=== PATIENT | female | born 1995 | race African-American/Black ===

== ENCOUNTER 2018-02-24 11:09 | Emergency (ER) | payer OTHER | END 2018-02-24 11:49 | disposition home or self-care (01) | LOC: M ED 11:09 | DX: H10.13 Acute atopic conjunctivitis, bilateral (principal) | CPT/HCPCS: 99283 ==

== ENCOUNTER → 2018-05-11 | Outpatient (REF) | payer OTHER ==
[~2018-05-11] MED LIST: ERYT5OPO OS; OLOP1OPD OS
== END ==
LOC: M SFHCLERA 10:18
PROVIDERS: ATTEND Nurse Practitioner Family
DX: R53.81 Other malaise (principal)

== ENCOUNTER 2018-07-10 01:47 | Emergency (ER) | payer OTHER ==
[~2018-07-10] VITALS: Ht 165.1 cm; Wt 86.4 kg
[2018-07-10 01:47] VITALS: BP 142/71
[~2018-07-10 01:47] MED LIST changes: +ERYT1OIN26 OS; -ERYT5OPO OS; -OLOP1OPD OS; +PATA2.5S OS
== END 2018-07-10 04:04 | disposition left against medical advice (07) ==
LOC: M ED 01:47
DX: J02.9 Acute pharyngitis, unspecified (principal); Z53.21 Procedure and treatment not carried out due to patient leaving prior to being seen by health care provider

== ENCOUNTER 2019-04-11 12:09 | Emergency (ER) | payer OTHER ==
[~2019-04-11] VITALS: Ht 165.1 cm; Wt 91.4 kg
[2019-04-11] MEDS ORDERED: cefTRIAXone SOD 1 GM in D5W MINI-BAG PLUS 50 ML IV ONE (13:45)
[2019-04-11] MEDS ORDERED: NS 1,000 ML IV ONE (13:45)
[2019-04-11] MEDS ORDERED: ACETAMINOPHEN 500 MG TAB PO ONE (13:45)
[2019-04-11 13:58] LABS: EOS % 0.2 % (0.0-3.0); HEMATOCRIT 34.5 % (36.0-47.0); HEMOGLOBIN 11.1 g/dl (12.0-15.5); LYMPH # 1.1 10^3/uL (1.5-5.0); LYMPH % 18.6 % (24.0-44.0); MEAN CORPUSCULAR HEMOGLOBIN 26.7 pg (27.0-33.0); MEAN CORPUSCULAR HGB CONC 32.2 g/dl (32.0-36.5); MEAN CORPUSCULAR VOLUME 82.9 fl (80.0-96.0); MONO # 0.7 10^3/uL (0.0-0.8); MONO % 12.8 % (0.0-5.0); NEUTROPHILS # 3.9 10^3/uL (1.5-8.5); NEUTROPHILS % 68.2 % (36.0-66.0); PLATELET COUNT, AUTOMATED 229 10^3/uL (150-450); RED BLOOD COUNT 4.16 10^6/uL (4.00-5.40); WHITE BLOOD COUNT 5.7 10^3/uL (4.0-10.0)
[2019-04-11 14:17] LABS: HCG, SERUM QUALITATIVE NEGATIVE (NEGATIVE)
[2019-04-11 14:56] LABS: INFLUENZA A AMPLIFICATION NEGATIVE (NEGATIVE); INFLUENZA B AMPLIFICATION NEGATIVE (NEGATIVE)
[2019-04-11 15:01] VITALS: BP 115/87
[2019-04-11] MEDS ORDERED: CIPR-249 PO (15:09)
== END 2019-04-11 15:20 | disposition home or self-care (01) ==
LOC: M ED 12:09
DX: N10 Acute pyelonephritis (principal); Z87.440 Personal history of urinary (tract) infections; Z98.890 Other specified postprocedural states
CPT/HCPCS: 36415; 80047; 81001; 84702; 84703; 85025; 87088; 87186; 87502; 96365; 99284; J0696

== ENCOUNTER 2020-09-01 09:31 | Emergency (ER) | payer OTHER ==
[~2020-09-01] VITALS: Ht 165.1 cm; Wt 77.5 kg
[~2020-09-01 09:31] MED LIST changes: +CIPR-249 PO; -ERYT1OIN26 OS; +ERYT5OIN25 OS
--- NOTE | 2020-09-01 10:44 | REP ---
INDICATION: r/o ectopic. COMPARISON: None. TECHNIQUE: Transabdominal obstetric sonography. FINDINGS: Transabdominal scanning demonstrates a single living intrauterine gestation. Gestational sac is seen within the uterine fundal endometrium. Truman-rump length is 6 mm corresponding to a gestational age estimate of 6 weeks 3 days. heart rate is recorded at 125 beats per minute. Yolk sac and embryonic pole are visualized. There is a 2.0 cm hypoechoic cyst in the maternal left ovary consistent with corpus luteum. No other extra uterine finding. IMPRESSION: Single living intrauterine gestation at 6 weeks 3 days by crown-rump length. BIENVENIDO by today's sonography April 24, 2021. No complication is identified. <Electronically signed by Lloyd Guy > 09/01/20 [id number]
[2020-09-01 10:45] LABS: BASO % 0.2 % (0.0-1.0); EOS % 0.5 % (0.0-3.0); HEMOGLOBIN 11.6 g/dl (12.0-15.5); LYMPH # 1.4 10^3/uL (1.5-5.0); LYMPH % 31.1 % (24.0-44.0); MEAN CORPUSCULAR HGB CONC 32.2 g/dl (32.0-36.5); MEAN CORPUSCULAR VOLUME 83.9 fl (80.0-96.0); MONO # 0.3 10^3/uL (0.0-0.8); MONO % 7.5 % (2.0-8.0); NEUTROPHILS # 2.6 10^3/uL (1.5-8.5); NEUTROPHILS % 60.2 % (36.0-66.0); PLATELET COUNT, AUTOMATED 254 10^3/uL (150-450); RED BLOOD COUNT 4.29 10^6/uL (4.00-5.40); WHITE BLOOD COUNT 4.4 10^3/uL (4.0-10.0)
[2020-09-01 11:16] LABS: ALBUMIN 3.5 GM/DL (3.2-5.2); BILIRUBIN,DIRECT 0.1 MG/DL (0.0-0.2); BILIRUBIN,TOTAL 0.3 MG/DL (0.2-1.0); TOTAL PROTEIN 7.4 GM/DL (6.4-8.2)
[2020-09-01 11:33] LABS: BLOOD UREA NITROGEN 8 MG/DL (7-18); CALCIUM LEVEL 8.8 MG/DL (8.5-10.1); CARBON DIOXIDE LEVEL 25 MEQ/L (21-32); CHLORIDE LEVEL 105 MEQ/L (98-107); CREATININE FOR GFR 0.56 MG/DL (0.55-1.30); GLOMERULAR FILTRATION RATE > 60.0 (>60); GLUCOSE, FASTING 75 MG/DL (70-100); POTASSIUM SERUM 4.3 MEQ/L (3.5-5.1); SODIUM LEVEL 134 MEQ/L (136-145)
[2020-09-01 11:34] LABS: HCG, SERUM QUANTITATIVE 40092 MIU/ML
--- NOTE | 2020-09-01 14:30 | REP ---
INDICATION: r/o appenidicitis, RLQ pain, 6 weeks . COMPARISON: No comparison study. Obstetric sonography from this date. TECHNIQUE: Axial, coronal, and sagittal imaging planes utilized for T1 and T2 weighted scans of the lower abdomen and pelvis.. FINDINGS: Intrauterine gestational sac is seen as described on sonography. There is a very small amount of fluid visible in the cul-de-sac. Urinary bladder is intact. No adnexal mass or cyst is seen on either side. No hydronephrosis or renal abnormality is observed. Small and large intestinal bowel loops are unremarkable. A normal size 6 mm appendix is seen coursing medially from the cecal tip into the right superior pelvic region. There is no evidence of appendiceal distention, mural thickening, or Pinky appendiceal edema to suggest acute appendicitis. IMPRESSION: No MR evidence of acute appendicitis. Minimal amount of fluid in the cul-de-sac. Intrauterine gestational sac. Normal appendix visible. <Electronically signed by Lloyd Guy > 09/01/20 [id number]
[2020-09-01] MEDS ORDERED: CEPH500C PO (14:55)
[2020-09-01 15:17] VITALS: BP 130/61
== END 2020-09-01 15:19 | disposition home or self-care (01) ==
LOC: M ED 09:31
DX: O26.891 Other specified pregnancy related conditions, first trimester (principal); O23.41 Unspecified infection of urinary tract in pregnancy, first trimester; Z32.01 Encounter for pregnancy test, result positive; Z3A.01 Less than 8 weeks gestation of pregnancy; O99.321 Drug use complicating pregnancy, first trimester; Z87.59 Personal history of other complications of pregnancy, childbirth and the puerperium

== ENCOUNTER 2021-03-04 23:12 | Emergency (ER) | payer OTHER ==
[~2021-03-04] VITALS: Ht 167.6 cm; Wt 77.7 kg
[~2021-03-04 23:12] MED LIST changes: +CEPH500C PO
--- OUTSIDE RECORDS SUMMARY | 2021-03-04 23:21 | CCD ---
Author Author [facility] Organization [facility] Address Unknown Phone Unavailable Care Team Providers Care Clay Stain Mixer Name Role Phone Uzma Barahona Unavailable Cherri Mann Unavailable Re-disclosure Warning The records that you are about to access may contain information from federally-assisted alcohol or drug abuse programs. If such information is present, then the following federally mandated warning applies: This information has been disclosed to you from records protected by federal confidentiality rules (42 CFR part 2). The federal rules prohibit you from making any further disclosure of this information unless further disclosure is expressly permitted by the written consent of the person to whom it pertains or as otherwise permitted by 42 CFR part 2. A general authorization for the release of medical or other information is NOT sufficient for this purpose. The Federal rules restrict any use of the information to criminally investigate or prosecute any alcohol or drug abuse patient.The records that you are about to access may contain highly sensitive health information, the redisclosure of which is protected by Article 27-F of the [facility] Public Health law. If you continue you may have access to information: Regarding HIV / AIDS; Provided by facilities licensed or operated by the [facility] Office of Mental Health; or Provided by the [facility] Office for People With Developmental Disabilities. If such information is present, then the following [facility] mandated warning applies: This information has been disclosed to you from confidential records which are protected by state law. State law prohibits you from making any further disclosure of this information without the specific written consent of the person to whom it pertains, or as otherwise permitted by law. Any unauthorized further disclosure in violation of state law may result in a fine or mcfp sentence or both. A general authorization for the release of medical or other information is NOT sufficient authorization for further disc losure. Encounters Encounter Providers Location Date Indications Data Source(s ) Extended Individual Psychotherapy - 45 min Attender: Tate Mann [facility] 07/25/2020 02:00:00 AM EDT - 07/25/2020 02:00:00 AM EDT [facility] ([facility]) Attender: Cherri Mann 07/25/2020 12:00:00 AM EDT [facility] ([facility]) Psychiatric Diagnostic Evaluation (Non-Medical) Attender: Carroll Mann [facility] 06/27/2020 05:15:00 AM EDT - 06/27/2020 05:15:00 AM EDT [facility] ([facility]) Attender: Cherri Mann 06/27/2020 12:00:00 AM EDT [facility] ([facility]) Extended Individual Psychotherapy - 45 min Attender: Linda Barahona [facility] 06/22/2020 10:45:00 AM EDT - 06/22/2020 10:45:00 AM EDT [facility] ([facility]) Attender: Uzma Barahona 06/22/2020 12:00:00 AM EDT [facility] ([facility]) Medications No Information Insurance Providers Payer name Policy type / Coverage type Policy ID Covered libertarian ID Covered libertarian's relationship to almanza Policy Almanza Plan Information [facility] [id number] [facility] [id number] [facility] [id number] ANSI-Not a Secondary Insurance [id number] Problems, Conditions, and Diagnoses Code Display Name Description Problem Type Effective Dates Data Source(s) F12.10 Cannabis abuse, uncomplicated Cannabis Use Disorder, M ild Condition 07/25/2020 12:00:00 AM EDT [facility] ([facility]) F32.9 Major depressive disorder, single episod e, unspecified Unspecified depressive Disorder Condition 07/25/2020 12:00:00 AM EDT [facility] ( [facility]) Surgeries/Procedures Procedure Description Date Indications Data Source(s) Extended Individual Psychotherapy - 45 min 07/25/2020 12:00:00 AM EDT - 07/25/2020 12:00:00 AM EDT [facility] ([facility]) Extended Individual Psychotherapy - 45 min 12:00:00 AM EDT [facility] ([facility]) Psychiatric Diagnostic Evaluation (Non-Medical) 06/27/2020 12:00:00 AM EDT - 06/27/2020 12:00:00 AM EDT [facility] ([facility]) Psychiatric Diagnostic Evaluation (Non-Medical) 2020 12:00:00 AM EDT [facility] ([facility]) Extended Individual Psychotherapy - 45 min 06/22/2020 12:00:00 AM EDT - 06/22/2020 12:00:00 AM EDT [facility] ([facility]) Extended Individual Psychotherapy - 45 min 12:00:00 AM EDT [facility] ([facility]) Results No Information Social History Code Duration Value Status Description Data Source(s ) Smoking 07/25/2020 12:00:00 AM EDT Unknown if ever smoked comp leted Unknown if ever smoked [facility] ([facility]) Smoking 06/27/2020 12:00:00 AM EDT Unknown if ever smoked comp leted Unknown if ever smoked [facility] ([facility]) Smoking 06/22/2020 12:00:00 AM EDT Unknown if ever smoked comp leted Unknown if ever smoked [facility] ([facility])
[2021-03-05 01:24] LABS: BASO % 0.2 % (0.0-1.0); EOS # 0.1 10^3/uL (0.0-0.5); HEMATOCRIT 31.1 % (36.0-47.0); HEMOGLOBIN 9.8 g/dl (12.0-15.5); LYMPH # 1.9 10^3/uL (1.5-5.0); LYMPH % 32.5 % (24.0-44.0); MEAN CORPUSCULAR HEMOGLOBIN 26.1 pg (27.0-33.0); MEAN CORPUSCULAR HGB CONC 31.5 g/dl (32.0-36.5); MEAN CORPUSCULAR VOLUME 82.9 fl (80.0-96.0); MONO # 0.6 10^3/uL (0.0-0.8); MONO % 9.4 % (2.0-8.0); NEUTROPHILS # 3.3 10^3/uL (1.5-8.5); NEUTROPHILS % 56.7 % (36.0-66.0); PLATELET COUNT, AUTOMATED 238 10^3/uL (150-450); RED BLOOD COUNT 3.75 10^6/uL (4.00-5.40); WHITE BLOOD COUNT 5.9 10^3/uL (4.0-10.0)
[2021-03-05 01:36] LABS: BLOOD UREA NITROGEN 6 MG/DL (7-18); CARBON DIOXIDE LEVEL 24 MEQ/L (21-32); CHLORIDE LEVEL 106 MEQ/L (98-107); CREATININE FOR GFR 0.54 MG/DL (0.55-1.30); GLOMERULAR FILTRATION RATE > 60.0 (>60); GLUCOSE, FASTING 72 MG/DL (70-100); SODIUM LEVEL 137 MEQ/L (136-145)
[2021-03-05 01:37] LABS: CK-MB VALUE MASS < 1.0 NG/ML (<3.6); CPK CREATINE PHOSPHOKINASE 20 U/L (26-192)
--- NOTE | 2021-03-05 02:44 | REPVR ---
PROCEDURE INFORMATION: Exam: US Doppler Velocimetry of the Umbilical Artery Exam date and time: 03/05/2021 1:19 AM Age: 26 years old Clinical indication: Last menstrual period on 07/19/2020. status abnormalities: movements, decreased; Single gestation; Third trimester (=28 weeks 0 days); ; Additional info: Decreased movement, cord doppler TECHNIQUE: Imaging protocol: US Doppler velocimetry of the umbilical artery with Doppler color and waveform analysis. COMPARISON: MRI PELVIS WITHOUT CONTRAST 09/01/2020 1:51 PM (The report from this study was not available for review at the time of this interpretation.) FINDINGS: Umbilical cord and insertion: There are 2 umbilical arteries and 1 umbilical vein. Cord insertion on the abdominal wall is normal. Umbilical artery Doppler: There are 2 umbilical arteries, which are patent. There is normal continuous forward flow in the umbilical artery during diastole and no absent or reversed end-diastolic flow is noted. Umbilical artery peak systolic velocity: 53.1 cm/s Umbilical artery systolic to diastolic ratio: 2.54. Systolic to diastolic ratio is within normal limits for age (1.77-3.74). IMPRESSION: Unremarkable umbilical Doppler for age. PROCEDURE INFORMATION: Exam: US Biophysical Profile Without Non-Stress Test Exam date and time: 03/05/2021 1:19 AM Age: 26 years old Clinical indication: Last menstrual period on 07/19/2020. status abnormalities: movements, decreased; Single gestation; Third trimester (=28 weeks 0 days); ; Additional info: Decreased movement, cord doppler TECHNIQUE: Imaging protocol: US biophysical profile without non-stress testing. COMPARISON: MRI PELVIS WITHOUT CONTRAST 09/01/2020 1:51 PM (The report from this study was not available for review at the time of this interpretation.) FINDINGS: Gestation: There is a single live intrauterine . heart rate: 133 bpm Presentation: Cephalic. Placenta: Posterior location. No placenta previa. Amniotic fluid index: 13.7 cm (8.2-24.6) BIOPHYSICAL PROFILE: Breathin/2 Gross body movements: 2/2 tone: 2/2 Qualitative amniotic fluid: 2/2 Biophysical Profile Score: 8/8 MATERNAL ANATOMY: Cervix: Closed. 4 cm in length. IMPRESSION: Biophysical profile score is 8 out of 8. Electronically signed by: Gregg Koroma On 03/05/2021 02:43:37 AM
--- NOTE | 2021-03-05 03:39 | REPVR ---
PROCEDURE INFORMATION: Exam: CTA Chest With Contrast Exam date and time: 03/05/2021 2:49 AM Age: 26 years old Clinical indication: Pain; Bilateral chest pain; ; Additional info: Rule out pe TECHNIQUE: Imaging protocol: Computed tomographic angiography of the chest with contrast. 3D rendering (Not supervised by radiologist): MIP and/or 3D reconstructed images were created by the technologist. Radiation optimization: All CT scans at this facility use at least one of these dose optimization techniques: automated exposure control; mA and/or kV adjustment per patient size (includes targeted exams where dose is matched to clinical indication); or iterative reconstruction. Contrast material: ISO; Contrast volume: 75 ml; Contrast route: INTRAVENOUS (IV); COMPARISON: No relevant prior studies available. FINDINGS: Pulmonary arteries: No pulmonary embolism. Aorta: The thoracic aorta is intact and patent. There is no thoracic aortic aneurysm, pseudoaneurysm, penetrating atherosclerotic ulcer, intramural hematoma, or dissection. 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 Trachea: Normal. Bronchial tree: Normal. Normal. Lungs: The lungs are clear. There is no lung consolidation, pulmonary infarct, or mass. No emphysematous changes or interstitial lung disease is noted. Pleural spaces: No pneumothorax or pleural effusion. Heart: No cardiomegaly or pericardial effusion. The ratio of the diameter of the right ventricle to the diameter of the left ventricle measures less than 1, which is within normal limits and there is no CT evidence for a right ventricular strain. Mediastinal space: Incidental note is made of residual thymic tissue in the anterior mediastinum. No mediastinal mass, fluid collection, or pneumomediastinum. Lymph nodes: No enlarged lymph nodes. Diaphragm: Intact. Bones/joints: There is no fracture or dislocation. No suspicious osteolytic or osteoblastic lesion. Soft tissues: Unremarkable. No soft tissue fluid collection. IMPRESSION: No acute findings in the chest. No pulmonary embolism. Electronically signed by: Gregg Koroma On 03/05/2021 03:38:40 AM
[2021-03-05 04:04] LABS: RSV AMPLIFICATION NEGATIVE (NEGATIVE)
--- OUTSIDE RECORDS SUMMARY | 2021-03-05 04:08 | CCD ---
Author Author [facility] Organization [facility] Address Unknown Phone Unavailable Care Team Providers Care Craft Recruiter Name Role Phone Uzma Barahona Unavailable Cherri [...] is protected by Article 27-F of the [facility] Public Health law. If you continue you may have access to information: Regarding HIV / AIDS; Provided by facilities licensed or operated by the [facility] Office of Mental Health; or Provided by the [facility] Office for People With Developmental Disabilities. If such information is present, then the following [facility] mandated warning applies: This information has been [...] law may result in a fine or correction sentence or both. A general authorization for the release of medical or other information is NOT sufficient authorization for further disc losure. Encounters Encounter Providers Location Date Indications Data Source(s ) Extended Individual Psychotherapy - 45 min Attender: Tate Mann [facility] 07/25/2020 02:00:00 AM EDT - 07/25/2020 02:00:00 AM EDT [facility] ([facility]) Attender: Cherri Mann 07/25/2020 12:00:00 AM EDT [facility] ([facility]) Psychiatric Diagnostic Evaluation (Non-Medical) Attender: Carroll Mann [facility] 06/27/2020 05:15:00 AM EDT - 06/27/2020 05:15:00 AM EDT [facility] ([facility]) Attender: Cherri Mann 06/27/2020 12:00:00 AM EDT [facility] ([facility]) Extended Individual Psychotherapy - 45 min Attender: Linda Barahona [facility] 06/22/2020 10:45:00 AM EDT - 06/22/2020 10:45:00 AM EDT [facility] ([facility]) Attender: Uzma Barahona 06/22/2020 12:00:00 AM EDT [facility] ([facility]) Medications No Information Insurance Providers Payer name Policy type / Coverage type Policy ID Covered constitution party ID Covered constitution party's relationship to almanza Policy Almanza Plan Information [facility] [id number] [facility] [id number] [facility] [id number] ANSI-Not a Secondary Insurance [id number] Problems, Conditions, and Diagnoses Code Display Name Description Problem Type Effective Dates Data Source(s) F12.10 Cannabis abuse, uncomplicated Cannabis Use Disorder, M ild Condition 07/25/2020 12:00:00 AM EDT [facility] ([facility]) F32.9 Major depressive disorder, single episod e, unspecified Unspecified depressive Disorder Condition 07/25/2020 12:00:00 AM EDT [facility] ( e [facility]) Surgeries/Procedures Procedure Description Date Indications Data Source(s) Extended Individual Psychotherapy - 45 min 07/25/2020 12:00:00 AM EDT - 07/25/2020 12:00:00 AM EDT [facility] ([facility]) Extended Individual Psychotherapy - 45 min 12:00:00 AM EDT [facility] ([facility]) Psychiatric Diagnostic Evaluation (Non-Medical) 06/27/2020 12:00:00 AM EDT - 06/27/2020 12:00:00 AM EDT [facility] ([facility]) Psychiatric Diagnostic Evaluation (Non-Medical) 2020 12:00:00 AM EDT [facility] ([facility]) Extended Individual Psychotherapy - 45 min 06/22/2020 12:00:00 AM EDT - 06/22/2020 12:00:00 AM EDT [facility] ([facility]) Extended Individual Psychotherapy - 45 min 12:00:00 AM EDT [facility] ([facility]) Results No Information Social History Code Duration Value Status Description Data Source(s ) Smoking 07/25/2020 12:00:00 AM EDT Unknown if ever smoked comp leted Unknown if ever smoked [facility] ([facility]) Smoking 06/27/2020 12:00:00 AM EDT Unknown if ever smoked comp leted Unknown if ever smoked [facility] ([facility]) Smoking 06/22/2020 12:00:00 AM EDT Unknown if ever smoked comp leted Unknown if ever smoked [facility] ([facility])
[2021-03-05 04:29] VITALS: BP 124/88
--- NOTE | 2021-03-06 05:40 | ECGEPIP ---
[facility] - ED Test Date: 2021-03-04 Pat Name: IRON DYSON Department: Room: - Gender: Female Thai Masseur: KARINA : 1995 Requested By: WILFREDO Hollingsworth Order Number: [id number] Reading MD: Jose Bunch Measurements Intervals [place] Rate: 69 P: 23 DC: 142 QRS: 64 QRSD: 74 T: 44 QT: 382 QTc: 409 Interpretive Statements Normal sinus rhythm with sinus arrhythmia NO PRIORS FOR COMPARISON Electronically Signed on 03-06-2021 5:40:14 EST by Jose Bunch
== END 2021-03-05 04:31 | disposition home or self-care (01) ==
LOC: M ED 23:12
DX: O26.893 Other specified pregnancy related conditions, third trimester (principal); Z3A.31 31 weeks gestation of pregnancy

== ENCOUNTER 2021-03-08 09:40 | Outpatient (CLI) | payer OTHER ==
[~2021-03-08] VITALS: Ht 167.6 cm; Wt 79.5 kg
[2021-03-08] VITALS (7 sets, daily range): BP systolic 100–132; BP diastolic 57–71
[~2021-03-08 09:40] MED LIST changes: +IRON SUCROSE 300 MG in NS 250 ML OVER 90 MIN. IV ONE
== END 2021-03-08 14:10 | disposition home or self-care (01) ==
LOC: M INFU 09:40
PROVIDERS: ATTEND Obstetrics & Gynecology
DX: O99.013 Anemia complicating pregnancy, third trimester (principal); D50.9 Iron deficiency anemia, unspecified; Z3A.31 31 weeks gestation of pregnancy
CPT/HCPCS: 96365; 96366; J1756

== ENCOUNTER → 2021-03-14 | Outpatient (CLI) | payer OTHER ==
[~2021-03-14] VITALS: Ht 167.6 cm; Wt 80.0 kg
[~2021-03-14] MED LIST changes: +ACET-683 PO; +COLA100C5 PO; +FERR1TAB8 PO; +IBUP80TA PO
[2021-03-14 12:10] VITALS: BP 128/70
[2021-03-14 14:49] VITALS: BP 123/66
== END ==
LOC: M INFU 12:05
PROVIDERS: ATTEND Obstetrics & Gynecology
DX: O99.013 Anemia complicating pregnancy, third trimester (principal); D50.9 Iron deficiency anemia, unspecified; Z3A.31 31 weeks gestation of pregnancy
CPT/HCPCS: 96365; 96366; J1756

== ENCOUNTER 2021-03-21 08:20 | Outpatient (CLI) | payer OTHER ==
[~2021-03-21] VITALS: Ht 165.1 cm; Wt 79.5 kg
[~2021-03-21 08:20] MED LIST changes: -ACET-683 PO; -COLA100C5 PO; -FERR1TAB8 PO; -IBUP80TA PO
[2021-03-21 08:25] VITALS: BP 133/77
[2021-03-21 09:44] VITALS: BP 105/60
[2021-03-21 11:45] VITALS: BP 138/79
[2021-03-21 12:14] VITALS: BP 132/85
== END 2021-03-21 12:15 | disposition home or self-care (01) ==
LOC: M INFU 08:20
PROVIDERS: ATTEND Obstetrics & Gynecology
DX: O99.013 Anemia complicating pregnancy, third trimester (principal); D50.9 Iron deficiency anemia, unspecified; Z3A.31 31 weeks gestation of pregnancy
CPT/HCPCS: 96365; J1756

== ENCOUNTER 2021-04-15 09:37 | Outpatient (CLI) | payer OTHER ==
[~2021-04-15] VITALS: Ht 165.1 cm; Wt 85.3 kg
[~2021-04-15 09:37] MED LIST changes: -IRON SUCROSE 300 MG in NS 250 ML OVER 90 MIN. IV ONE
[2021-04-15 10:12] VITALS: BP 120/74
== END 2021-04-15 10:40 | disposition home or self-care (01) ==
LOC: M LDO 09:37
PROVIDERS: ATTEND Advanced Practice Midwife
DX: O26.893 Other specified pregnancy related conditions, third trimester (principal); Z3A.38 38 weeks gestation of pregnancy; N89.8 Other specified noninflammatory disorders of vagina; O34.211 Maternal care for low transverse scar from previous cesarean delivery
CPT/HCPCS: 59025; 76815; G0378; G0463

== ENCOUNTER 2021-04-15 21:59 | Inpatient (IN) | payer OTHER ==
[~2021-04-15] VITALS: Ht 165.1 cm; Wt 83.0 kg
[2021-04-15] MEDS: LR 1,000 ML IV SCH (00:08)
[2021-04-15 22:38] VITALS: BP 183/124
[2021-04-15 22:51] VITALS: BP 164/107
[2021-04-15] MEDS ORDERED: NIFEdipine 10 MG CAP As Ordered ONE (23:01)
[2021-04-15] MEDS ORDERED: LACTATED RINGER'S 1000 ML IV STA (23:01)
[2021-04-15 23:03] VITALS: BP 164/107
[2021-04-15] MEDS ORDERED: OXYTOCIN INJ 10 UNITS/ML VIAL (J2590) IM PRN (23:05)
[2021-04-15] MEDS ORDERED: LIDOCAINE 1% MDV 20ML VIAL INFIL PRN (23:05)
[2021-04-15] MEDS ORDERED: OXYTOCIN DRIP 30 UNITS in IV 1 EA IV PRN ×4 (23:05)
[2021-04-15] MEDS ORDERED: CARBOPROST TROMETHAMINE 250 MCG/ML AMP IM PRN (23:05)
[2021-04-15] MEDS ORDERED: TRANEXAMIC ACID INJection 1,000 MG in NS 100 ML IV PRN (23:05)
[2021-04-15] MEDS ORDERED: MAG Sulf (L&D) 4 GM/100 ML 4 GM in IV 1 EA IV ONE (23:05)
[2021-04-15] MEDS ORDERED: BUPIVACAINE HCL 0.25% 10ML VIAL SC SCH (23:05)
[2021-04-15] MEDS ORDERED: BICITRA 30ML SOLN UDC PO ONE (23:05)
[2021-04-15] MEDS ORDERED: OXYTOCIN INJ 10 UNITS/ML VIAL (J2590) IV PRN (23:05)
[2021-04-15] MEDS ORDERED: MAG Sulf (OBGYN) 20GM/500ML 20,000 MG in IV 1 EA IV SCH (23:05)
[2021-04-15 23:25] VITALS: BP 157/101
[2021-04-15 23:30] LABS: BASO % 0.2 % (0.0-1.0); EOS % 0.3 % (0.0-3.0); HEMATOCRIT 34.8 % (36.0-47.0); HEMOGLOBIN 11.2 g/dl (12.0-15.5); LYMPH # 1.9 10^3/uL (1.5-5.0); LYMPH % 28.8 % (24.0-44.0); MEAN CORPUSCULAR HEMOGLOBIN 26.8 pg (27.0-33.0); MEAN CORPUSCULAR HGB CONC 32.2 g/dl (32.0-36.5); MEAN CORPUSCULAR VOLUME 83.3 fl (80.0-96.0); MONO # 0.5 10^3/uL (0.0-0.8); MONO % 7.8 % (2.0-8.0); NEUTROPHILS # 4.1 10^3/uL (1.5-8.5); NEUTROPHILS % 62.4 % (36.0-66.0); PLATELET COUNT, AUTOMATED 209 10^3/uL (150-450); RED BLOOD COUNT 4.18 10^6/uL (4.00-5.40); WHITE BLOOD COUNT 6.5 10^3/uL (4.0-10.0)
[2021-04-15] MEDS ORDERED: MORPHINE PRES-FREE INJ 10 MG/10 ML VIAL (J2274) As Ordered ONE (23:40)
[2021-04-15 23:47] VITALS: BP 158/96
[2021-04-15] MEDS ORDERED: PHENYLephrine 500MCG 5ML (100MCG/ML) SYRINGE As Ordered ONE (23:47)
[2021-04-15] MEDS ORDERED: ePHEDrine SULFATE 25 MG/5 ML(5MG/ML) SYRINGE As Ordered ONE (23:47)
[2021-04-15 23:57] LABS: ALT/SGPT 12 U/L (12-78); BILIRUBIN,TOTAL 0.3 MG/DL (0.2-1.0); CREATININE FOR GFR 0.56 MG/DL (0.55-1.30); GLOMERULAR FILTRATION RATE > 60.0 (>60); LDH LACTATE DEHYDROGENASE 123 U/L (84-246); URIC ACID 4.6 MG/DL (2.6-6.0)
[2021-04-16] VITALS (24 sets, daily range): BP systolic 94–225; BP diastolic 54–122
[2021-04-16] MEDS ORDERED: ceFAZolin SOD 2 GM in IV 1 EA IV ONE ×2
[2021-04-16] MEDS ORDERED: NIFEdipine 10 MG CAP PO ONE
[2021-04-16] MEDS: LR 1,000 ML IV SCH ×3 (00:08→19:10)
[2021-04-16] MEDS ORDERED: diphenhydrAMINE 50MG/ML VIAL (J1200) IV PRN (00:23)
[2021-04-16] MEDS ORDERED: NALOXONE INJ 0.4MG/1ML VIAL (J2310 PER 1MG) IV PRN ×2 (00:23)
[2021-04-16] MEDS ORDERED: ONDANSETRON 4MG/2ML VIAL IV PRN ×3 (00:23→02:10)
[2021-04-16] MEDS ORDERED: METOCLOPRAMIDE INJ 10MG/2ML VIAL (J2765 PER 1) IV PRN (00:23)
[2021-04-16] MEDS ORDERED: NALBUPHINE HCL 10 MG/ML AMP (J2300) IV PRN (00:23)
[2021-04-16] MEDS ORDERED: ONDANSETRON 4MG/2ML VIAL As Ordered ONE (00:47)
[2021-04-16] MEDS ORDERED: KETOROLAC 60MG 2ML VIAL As Ordered ONE (00:47)
[2021-04-16] MEDS ORDERED: PHENYLephrine 500MCG 5ML (100MCG/ML) SYRINGE As Ordered ONE (00:53)
[2021-04-16 01:10] LABS: CORD GAS ABE V -4.9; CORD GAS HCO3 V 19.7 MEQ/L; CORD GAS O2 SAT V 99.1 %; CORD GAS PCO2 V 35.5 mmHg; CORD GAS PH V 7.362 UNITS; CORD GAS PO2 V 99.6 mmHg; CORD GAS SBC V 20.5 MEQ/L; CORD GAS TCO2 V 20.8 MEQ/L
[2021-04-16] MEDS ORDERED: MEASLES,MUMPS,RUBELLA VACCINE INJ (MMR-II) (90707) SC SCH (01:25)
[2021-04-16] MEDS ORDERED: MOM 30ML SUSPENSION UDC PO PRN (01:25)
[2021-04-16] MEDS ORDERED: oxyCODONE 5MG TAB PO PRN ×3 (01:25→02:10)
[2021-04-16] MEDS ORDERED: OXYTOCIN DRIP 30 UNITS in IV 1 EA IV SCH ×4 (01:25)
[2021-04-16] MEDS ORDERED: ACETAMINOPHEN 500 MG TAB PO PRN (01:25)
[2021-04-16] MEDS ORDERED: OXYTOCIN 30 UNITS IN 0.9% NaCl 500ML IV BAG (J2590) As Ordered ONE (01:45)
[2021-04-16] MEDS ORDERED: fentaNYL 100 MCG/2 ML INJECTION (J3010) IV PRN (02:10)
[2021-04-16] MEDS: KETOROLAC 30 MG/ML 1ML VIAL IV SCH ×3 (08:09→20:49)
[2021-04-16] MEDS: DOCUSATE SODIUM 100MG CAPSULE PO SCH ×2 (08:09→20:49)
[2021-04-16] MEDS: PRENATAL VITAMINS CHEWABLE TABLET PO SCH (08:09)
[2021-04-16] MEDS: FERROUS SULFATE 325MG TAB PO SCH (08:35)
[2021-04-16 10:38] LABS: HEMATOCRIT 24.9 % (36.0-47.0); MEAN CORPUSCULAR HGB CONC 32.1 g/dl (32.0-36.5); MEAN CORPUSCULAR VOLUME 84.1 fl (80.0-96.0); PLATELET COUNT, AUTOMATED 181 10^3/uL (150-450); RED BLOOD COUNT 2.96 10^6/uL (4.00-5.40)
[2021-04-16 11:07] LABS: ALBUMIN 2.1 GM/DL (3.2-5.2); ALT/SGPT 10 U/L (12-78); BILIRUBIN,TOTAL < 0.1 MG/DL (0.2-1.0); BLOOD UREA NITROGEN 5 MG/DL (7-18); CALCIUM LEVEL 6.8 MG/DL (8.5-10.1); CARBON DIOXIDE LEVEL 23 MEQ/L (21-32); CHLORIDE LEVEL 105 MEQ/L (98-107); CREATININE FOR GFR 0.52 MG/DL (0.55-1.30); GLOMERULAR FILTRATION RATE > 60.0 (>60); GLUCOSE, FASTING 109 MG/DL (70-100); POTASSIUM SERUM 3.8 MEQ/L (3.5-5.1); SODIUM LEVEL 135 MEQ/L (136-145); TOTAL PROTEIN 4.8 GM/DL (6.4-8.2)
[2021-04-16 11:08] LABS: MAGNESIUM LEVEL 6.1 MG/DL (1.8-2.4)
[2021-04-16] MEDS ORDERED: MAG Sulf (OBGYN) 20GM/500ML 20,000 MG in IV 1 EA IV SCH (11:25)
[2021-04-16] MEDS: SIMETHICONE 80MG CHEW TAB PO PRN (18:18)
[2021-04-16] MEDS ORDERED: LR 500 ML IV ONE (20:45)
[2021-04-17] VITALS (16 sets, daily range): BP systolic 119–143; BP diastolic 60–87
[2021-04-17] MEDS: SIMETHICONE 80MG CHEW TAB PO PRN ×2 (00:03→12:46)
[2021-04-17] MEDS: IBUPROFEN 800 MG TAB PO SCH ×3 (05:08→19:30)
[2021-04-17 06:19] LABS: HEMATOCRIT 21.6 % (36.0-47.0); MEAN CORPUSCULAR HEMOGLOBIN 27.3 pg (27.0-33.0); MEAN CORPUSCULAR HGB CONC 31.5 g/dl (32.0-36.5); MEAN CORPUSCULAR VOLUME 86.7 fl (80.0-96.0); PLATELET COUNT, AUTOMATED 176 10^3/uL (150-450); RED BLOOD COUNT 2.49 10^6/uL (4.00-5.40); WHITE BLOOD COUNT 5.2 10^3/uL (4.0-10.0)
[2021-04-17 06:20] LABS: HEMOGLOBIN 6.8 g/dl (12.0-15.5)
[2021-04-17 06:42] LABS: BLOOD UREA NITROGEN 8 MG/DL (7-18); CALCIUM LEVEL 7.4 MG/DL (8.5-10.1); CARBON DIOXIDE LEVEL 24 MEQ/L (21-32); CHLORIDE LEVEL 107 MEQ/L (98-107); CREATININE FOR GFR 0.62 MG/DL (0.55-1.30); GLOMERULAR FILTRATION RATE > 60.0 (>60); GLUCOSE, FASTING 83 MG/DL (70-100); MAGNESIUM LEVEL 3.2 MG/DL (1.8-2.4); POTASSIUM SERUM 4.4 MEQ/L (3.5-5.1); SODIUM LEVEL 137 MEQ/L (136-145)
[2021-04-17] MEDS: LR 1,000 ML IV SCH ×2 (07:05→15:05)
[2021-04-17] MEDS: PRENATAL VITAMINS CHEWABLE TABLET PO SCH (09:20)
[2021-04-17] MEDS: DOCUSATE SODIUM 100MG CAPSULE PO SCH ×2 (09:20→19:29)
[2021-04-17] MEDS: FERROUS SULFATE 325MG TAB PO SCH (12:46)
[2021-04-17 14:08] LABS: HEMATOCRIT 26.3 % (36.0-47.0); HEMOGLOBIN 8.5 g/dl (12.0-15.5); MEAN CORPUSCULAR HGB CONC 32.3 g/dl (32.0-36.5); MEAN CORPUSCULAR VOLUME 83.5 fl (80.0-96.0); PLATELET COUNT, AUTOMATED 165 10^3/uL (150-450); RED BLOOD COUNT 3.15 10^6/uL (4.00-5.40); WHITE BLOOD COUNT 5.4 10^3/uL (4.0-10.0)
[2021-04-18 02:00] VITALS: BP 126/63
[2021-04-18] MEDS: IBUPROFEN 800 MG TAB PO SCH ×2 (04:03→13:04)
[2021-04-18 05:48] VITALS: BP 126/78
[2021-04-18] MEDS ORDERED: COLA100C5 PO (07:27)
[2021-04-18] MEDS ORDERED: FERR1TAB8 PO (07:27)
[2021-04-18] MEDS ORDERED: ACET-683 PO (07:27)
[2021-04-18] MEDS ORDERED: IBUP80TA PO (07:27)
[2021-04-18] MEDS: DOCUSATE SODIUM 100MG CAPSULE PO SCH (08:19)
[2021-04-18] MEDS: PRENATAL VITAMINS CHEWABLE TABLET PO SCH (08:19)
[2021-04-18] MEDS: FERROUS SULFATE 325MG TAB PO SCH (08:19)
[2021-04-18 08:35] LABS: HEMATOCRIT 26.6 % (36.0-47.0); HEMOGLOBIN 8.5 g/dl (12.0-15.5); MEAN CORPUSCULAR HEMOGLOBIN 26.7 pg (27.0-33.0); MEAN CORPUSCULAR VOLUME 83.6 fl (80.0-96.0); PLATELET COUNT, AUTOMATED 171 10^3/uL (150-450); RED BLOOD COUNT 3.18 10^6/uL (4.00-5.40); WHITE BLOOD COUNT 5.9 10^3/uL (4.0-10.0)
== END 2021-04-18 15:20 | disposition home or self-care (01) | DRG 773 ==
LOC: M LDO 21:59 → M LDI 22:24 → M OBS 04-17 12:27
PROVIDERS: ADMIT Obstetrics & Gynecology; ATTEND Obstetrics & Gynecology
PROC: 30233N1 Transfusion of Nonautologous Red Blood Cells into Peripheral Vein, Percutaneous Approach (ICD-10-PCS; 2021-04-15)
PROC: 10D00Z1 Extraction of Products of Conception, Low, Open Approach (ICD-10-PCS; principal; 2021-04-16 00:38)
DX: O34.211 Maternal care for low transverse scar from previous cesarean delivery (principal); O99.824 Streptococcus B carrier state complicating childbirth; Z3A.38 38 weeks gestation of pregnancy; O99.02 Anemia complicating childbirth; D64.9 Anemia, unspecified; Z91.19 Patient's noncompliance with other medical treatment and regimen; O14.14 Severe pre-eclampsia complicating childbirth; Z37.0 Single live birth

== ENCOUNTER 2021-10-13 23:46 | Emergency (ER) | payer OTHER ==
[~2021-10-13] VITALS: Ht 165.1 cm; Wt 79.5 kg
[~2021-10-13 23:46] MED LIST changes: +ACET-683 PO; +COLA100C5 PO; +FERR1TAB8 PO; +IBUP80TA PO
[2021-10-14 00:12] VITALS: BP 136/84
== END 2021-10-14 02:41 | disposition home or self-care (01) ==
LOC: M ED 23:46
DX: F43.0 Acute stress reaction (principal); F90.9 Attention-deficit hyperactivity disorder, unspecified type; F43.10 Post-traumatic stress disorder, unspecified; Z79.899 Other long term (current) drug therapy; Z81.8 Family history of other mental and behavioral disorders